=== PATIENT | male | born 1990 | race Caucasian/White ===

== ENCOUNTER 2020-04-04 20:02 | Observation (INO) | payer BC, OTHER ==
[2020-04-04] MEDS ORDERED: Sodium Chloride 0.9% 1,000 ML IV ONE ×3 (20:06→21:27)
[2020-04-04] MEDS ORDERED: Sodium Chloride 0.9% 2.5 ML Syringe FLUSH PRN (20:06)
[2020-04-04] MEDS ORDERED: Sodium Chloride 0.9% 10 ML Syringe FLUSH PRN (20:06)
--- NOTE | 2020-04-04 20:12 | EDM.PDOC ---
ED HPI GENERAL MEDICAL PROBLEM - General Chief Complaint: General Stated Complaint: POSSIBLE HEAT STROKE Time Seen by Provider: 04/04/20 20:06 - History of Present Illness INITIAL COMMENTS - FREE TEXT/NARRATIVE: History of present illness: 29-year-old male presenting with concern for possible heatstroke. Apparently has been working out in the heat and sun all day and feeling weak, shaky and cramping in arms and legs. He does report history of heat stroke in the past with similar symptoms but more severe at other times and that he was vomiting and unable to keep down fluids. No chest pain but does report some feeling like he cannot breathe well. No fevers or cough. No recent travel. He does report that where he works he is sometimes exposed to exhaust smoke. Review of systems: As per history of present illness and below otherwise all systems reviewed and negative. Past medical history: As per history of present illness and as reviewed below otherwise noncontributory. Surgical history: As per history of present illness and as reviewed below otherwise noncontributory. Social history: No reported history of drug or alcohol abuse. Family history: As per history of present illness and as reviewed below otherwise noncontributory. Physical exam: GEN: no acute distress, well appearing HEENT: Atraumatic, normocephalic, mucous membranes dry Neck: supple, nontender, trachea midline. Lungs: No respiratory distress. Heart: RRR Abdomen: Soft, nondistended, nontender. Back: nontender Extremities: Atraumatic. Neurovascularly intact. Neuro: Awake, alert, oriented. Neuro Exam nonfocal. Skin: warm, dry, no lesions Diagnostics: EKG performed today at 8:07 PM, sinus rhythm, rate 79, mild ST prominence, likely early repolarization. Patient with no chest pain. No STEMI. Therapeutics: [] MDM: Impression: [] Plan: [] Definitive disposition and diagnosis as appropriate pending reevaluation and review of above. - Related Data Allergies Allergy/AdvReac Type Severity Reaction Status Date / Time No Known Allergies Allergy Verified 04/04/20 20:15 Home Meds: Home Meds . [No Known Home Meds] 04/04/20 [History] Past Medical History - Past Health History Medical/Surgical History: Denies Medical/Surgical History Musculoskeletal History: Reports: Other (See Below) Other Musculoskeletal History: pain, swelling, and bluish discoloration on left 5th little finger Neurological History: Reports: Other (See Below) Other Neuro History: heat stroke last 2014 - Past Surgical History HEENT Surgical History: Reports: Other (See Below) Social & Family History - Family History Family Medical History: Noncontributory Cardiac: Reports: Hypertension Endocrine/Metabolic: Reports: Diabetes, type II Oncologic: Reports: Other (See Below) Other Oncologic Family History: cant remember which type ED ROS GENERAL - Review of Systems Review Of Systems: See Below (See dictation) ED EXAM, GENERAL - Physical Exam Exam: See Below (See dictation) Course - Vital Signs Text/Narrative:: Patient with dehydration/heat stroke/heat exhaustion. Creatinine acutely elevated to 3.1. Troponin also elevated but repeat 2-hour troponin after adequate hydration is improved/in a normal level. CPK 598, this is likely related to the patient's muscle contractions which he reports were ongoing for quite a while as he was being driven here from his worksite. White blood cell count is elevated, however patient did have several episodes of vomiting prior to arrival here. Has had no infectious signs or symptoms. Chest x-ray negative. COVID swab negative. Abdomen soft and nontender. No other potential infectious source found. Last Recorded V/S: Last Vital Signs Temp 98.1 F 04/04/20 20:10 Pulse 88 04/04/20 22:12 Resp 14 04/04/20 22:12 BP 146/89 H 04/04/20 22:12 Pulse Ox 99 04/04/20 22:12 - Orders/Labs/Meds Orders: Active Orders 24 hr Category Date Time Status Cardiac Monitoring [RC] . DIRECTED Care 04/04/20 20:06 Active EKG Documentation Completion [RC] STAT Care 04/04/20 20:07 Active RT Carbon Monoxide Diffusion [RC] Click to Edit Care 04/04/20 20:09 Active UA W/MAC RFLX IF INDICATED [URIN] Stat Lab 04/04/20 21:58 Ordered Sodium Chloride 0.9% [Saline Flush] Med 04/04/20 20:06 Active 10 ml FLUSH ASDIRECTED PRN Sodium Chloride 0.9% [Saline Flush] Med 04/04/20 20:06 Active 2.5 ml FLUSH ASDIRECTED PRN Saline Lock Insert [OM.PC] Stat Oth 04/04/20 20:06 Ordered Medication Orders Sodium Chloride (Saline Flush) 10 ml FLUSH ASDIRECTED PRN PRN Reason: Keep Vein Open Sodium Chloride (Saline Flush) 2.5 ml FLUSH ASDIRECTED PRN PRN Reason: Keep Vein Open Labs: Laboratory Tests 04/04/20 04/04/20 04/04/20 Range/Units 20:05 20:05 20:05 WBC 23.97 H (4.0-11.0) K/uL RBC 5.96 H (4.50-5.90) M/uL Hgb 18.5 H (13.0-17.0) g/dL Hct 50.2 H (38.0-50.0) % MCV 84.2 (80.0-98.0) fL MCH 31.0 (27.0-32.0) pg MCHC 36.9 (31.0-37.0) g/dL RDW Std Deviation 37.7 (28.0-62.0) fl RDW Coeff of John 13 (11.0-15.0) % Plt Count 360 (150-400) K/uL MPV 10.70 (7.40-12.00) fL Neut % (Auto) 84.4 H (48.0-80.0) % Lymph % (Auto) 5.5 L (16.0-40.0) % Cochran % (Auto) 9.9 (0.0-15.0) % Eos % (Auto) 0.0 (0.0-7.0) % Baso % (Auto) 0.2 (0.0-1.5) % Neut # (Auto) 20.2 H (1.4-5.7) K/uL Lymph # (Auto) 1.3 (0.6-2.4) K/uL Cochran # (Auto) 2.4 H (0.0-0.8) K/uL Eos # (Auto) 0.0 (0.0-0.7) K/uL Baso # (Auto) 0.0 (0.0-0.1) K/uL Nucleated RBC % 0.0 /100WBC Nucleated RBCs # 0 K/uL ABG Carboxyhemoglobin 2.5 (0-15) % Sodium 134 L (136-148) mmol/L Potassium 4.5 (3.5-5.1) mmol/L Chloride 92 L (98-107) mmol/L Carbon Dioxide 18.0 L (21.0-32.0) mmol/L BUN 14 (7.0-18.0) mg/dL Creatinine 3.1 H (0.8-1.3) mg/dL Est Cr Clr Drug Dosing 33.46 mL/min Estimated GFR (MDRD) 24.3 ml/min Glucose 142 H (74-106) mg/dL Calcium 11.2 H (8.5-10.1) mg/dL Magnesium 1.5 L (1.8-2.4) mg/dL Total Bilirubin 1.7 H (0.2-1.0) mg/dL AST 38 H (15-37) IU/L ALT 33 (14-63) IU/L Alkaline Phosphatase 118 H (46-116) U/L Creatine Kinase 598 H (26-308) U/L Troponin I (0.000-0.056) ng/mL Total Protein 10.5 H (6.4-8.2) g/dL Albumin 6.5 H (3.4-5.0) g/dL Globulin 4.0 (2.6-4.0) g/dL Albumin/Globulin Ratio 1.6 (0.9-1.6) SARS-CoV-2 RNA (RT-PCR) (NEGATIVE) 04/04/20 04/04/20 04/04/20 Range/Units 20:05 21:00 22:04 WBC (4.0-11.0) K/uL RBC (4.50-5.90) M/uL Hgb (13.0-17.0) g/dL Hct (38.0-50.0) % MCV (80.0-98.0) fL MCH (27.0-32.0) pg MCHC (31.0-37.0) g/dL RDW Std Deviation (28.0-62.0) fl RDW Coeff of John (11.0-15.0) % Plt Count (150-400) K/uL MPV (7.40-12.00) fL Neut % (Auto) (48.0-80.0) % Lymph % (Auto) (16.0-40.0) % Cochran % (Auto) (0.0-15.0) % Eos % (Auto) (0.0-7.0) % Baso % (Auto) (0.0-1.5) % Neut # (Auto) (1.4-5.7) K/uL Lymph # (Auto) (0.6-2.4) K/uL Cochran # (Auto) (0.0-0.8) K/uL Eos # (Auto) (0.0-0.7) K/uL Baso # (Auto) (0.0-0.1) K/uL Nucleated RBC % /100WBC Nucleated RBCs # K/uL ABG Carboxyhemoglobin (0-15) % Sodium (136-148) mmol/L Potassium (3.5-5.1) mmol/L Chloride (98-107) mmol/L Carbon Dioxide (21.0-32.0) mmol/L BUN (7.0-18.0) mg/dL Creatinine (0.8-1.3) mg/dL Est Cr Clr Drug Dosing mL/min Estimated GFR (MDRD) ml/min Glucose (74-106) mg/dL Calcium (8.5-10.1) mg/dL Magnesium (1.8-2.4) mg/dL Total Bilirubin (0.2-1.0) mg/dL AST (15-37) IU/L ALT (14-63) IU/L Alkaline Phosphatase (46-116) U/L Creatine Kinase (26-308) U/L Troponin I 0.079 H* <0.050 (0.000-0.056) ng/mL Total Protein (6.4-8.2) g/dL Albumin (3.4-5.0) g/dL Globulin (2.6-4.0) g/dL Albumin/Globulin Ratio (0.9-1.6) SARS-CoV-2 RNA (RT-PCR) NEGATIVE (NEGATIVE) Meds: Medications Generic Name Dose Route Start Last Admin Trade Name Freq PRN Reason Stop Dose Admin Sodium Chloride 10 ml 04/04/20 20:06 Saline Flush FLUSH ASDIRECTED PRN Keep Vein Open Sodium Chloride 2.5 ml 04/04/20 20:06 Saline Flush FLUSH ASDIRECTED PRN Keep Vein Open Discontinued Medications Generic Name Dose Route Start Last Admin Trade Name Freq PRN Reason Stop Dose Admin Sodium Chloride 1,000 mls @ 999 mls/hr 04/04/20 20:06 04/04/20 20:05 Normal Saline IV 04/04/20 21:06 999 mls/hr .Bolus ONE Administration Sodium Chloride 1,000 mls @ 999 mls/hr 04/04/20 20:52 04/04/20 21:06 Normal Saline IV 04/04/20 21:52 999 mls/hr BOLUS ONE Administration Sodium Chloride 1,000 mls @ 999 mls/hr 04/04/20 21:27 04/04/20 22:11 Normal Saline IV 04/04/20 22:27 999 mls/hr .Bolus ONE Administration Ondansetron HCl 4 mg 04/04/20 20:59 04/04/20 21:06 Zofran IVPUSH 04/04/20 21:00 4 mg ONETIME ONE Administration - Re-Assessments/Exams Free Text/Narrative Re-Assessment/Exam: 04/04/20 22:30 Patient reassessed. He is resting comfortably in no acute distress. He reports he is feeling much better with no further nausea or vomiting. I discussed all results with the patient and discussed my recommendation for admission. He agrees with this plan. Discussed the elevated troponin level. He has not had any chest pain. I suspect this is due to the acute renal insufficiency from the patient's dehydration. His white blood cell count is also elevated though he has had no infectious signs or symptoms in the last few days and he did have multiple episodes of vomiting prior to arrival here. 04/04/20 22:49 Dr. Glez called back and accepts the admission. Agrees with the plan. Place patient under observation. Departure - Departure Time of Disposition: 22:51 Disposition: Refer to Observation Clinical Impression: Dehydration, Elevated troponin Acute renal failure Qualifiers: Acute renal failure type: unspecified Qualified Code(s): N17.9 - Acute kidney failure, unspecified Leukocytosis Qualifiers: Leukocytosis type: unspecified Qualified Code(s): D72.829 - Elevated white blood cell count, unspecified Rhabdomyolysis Qualifiers: Rhabdomyolysis type: non-traumatic Qualified Code(s): M62.82 - Rhabdomyolysis - Discharge Information Referrals: PCP,None [Primary Care Provider] - Forms: ED Department Discharge Sepsis Event Note (ED) - Focused Exam Vital Signs: Vital Signs Temp Pulse Resp BP Pulse Ox 04/04/20 22:12 88 14 146/89 H 99 04/04/20 20:48 91 16 127/94 H 98 04/04/20 20:10 98.1 F 103 H 20 134/87 97 - My Orders Last 24 Hours: My Active Orders 04/04/20 20:06 Cardiac Monitoring [RC] . DIRECTED Sodium Chloride 0.9% [Saline Flush] 10 ml FLUSH ASDIRECTED PRN Sodium Chloride 0.9% [Saline Flush] 2.5 ml FLUSH ASDIRECTED PRN Saline Lock Insert [OM.PC] Stat 04/04/20 20:07 EKG Documentation Completion [RC] STAT 04/04/20 20:09 RT Carbon Monoxide Diffusion [RC] Click to Edit 04/04/20 21:58 UA W/MAC RFLX IF INDICATED [URIN] Stat - Assessment/Plan Last 24 Hours: My Active Orders 04/04/20 20:06 Cardiac Monitoring [RC] . DIRECTED Sodium Chloride 0.9% [Saline Flush] 10 ml FLUSH ASDIRECTED PRN Sodium Chloride 0.9% [Saline Flush] 2.5 ml FLUSH ASDIRECTED PRN Saline Lock Insert [OM.PC] Stat 04/04/20 20:07 EKG Documentation Completion [RC] STAT 04/04/20 20:09 RT Carbon Monoxide Diffusion [RC] Click to Edit 04/04/20 21:58 UA W/MAC RFLX IF INDICATED [URIN] Stat
--- NOTE | 2020-04-04 20:22 | CR ---
Chest: Portable view of the chest was obtained. Comparison: Prior chest x-ray of prior chest x-ray of 05/20/14. Heart size and mediastinum are normal. Lungs are clear. Bony structures are grossly intact. Impression: 1. Nothing acute is seen on portable chest x-ray. Diagnostic code #1 Study was dictated in MDT
[2020-04-04] MEDS ORDERED: Ondansetron 4 MG/2 ML SDV IVPUSH ONE (20:59)
[2020-04-04 21:20] LABS: POTASSIUM,K 4.5 mmol/L (3.5-5.1)
[2020-04-05] MEDS ORDERED: Ondansetron 4 MG/2 ML SDV IVPUSH PRN (00:09)
[2020-04-05] MEDS: Sodium Chloride 0.9% 1,000 ML IV SCH ×4 (00:38→19:17)
[2020-04-05 06:44] LABS: BLOOD UREA NITROGEN,BUN 13 mg/dL (7.0-18.0); CARBON DIOXIDE,CO2 24.1 mmol/L (21.0-32.0); CHLORIDE,CL 104 mmol/L (98-107); GLUCOSE RANDOM 100 mg/dL (74-106); SODIUM,NA 138 mmol/L (136-148)
--- NOTE | 2020-04-05 11:14 | PCM.HP.2 ---
H&P History of Present Illness - General Date of Service: 04/05/20 Admit Problem/Dx: Admission Diagnosis/Problem Admission Diagnosis/Problem Acute renal failure Source of Information: Patient History Limitations: Reports: No Limitations - History of Present Illness Initial Comments - Free Text/Narative: ED note: 29-year-old male presenting with concern for possible heatstroke. Apparently has been working out in the heat and sun all day and feeling weak, shaky and cramping in arms and legs. He does report history of heat stroke in the past with similar symptoms but more severe at other times and that he was vomiting and unable to keep down fluids. No chest pain but does report some feeling like he cannot breathe well. No fevers or cough. No recent travel. He does report that where he works he is sometimes exposed to exhaust smoke. ED course: recived NS bolus; troponin intial elevated; repeated at baseline of 0.050. pt did not express any chest pain. EKG NSR with mild ST changes noted to be early repolarizations per ED; admitted for observation. Elevated CPK of 500+ Bedside: endorses feeling much better since recieving fluids and rest. Does not express any major pain and or cocerns. Mentions cramping and spasming have pretty much resolved. Denies any N/V, headache, chest pain and or hematuria. - Related Data Allergies/Adverse Reactions: Allergies Allergy/AdvReac Type Severity Reaction Status Date / Time No Known Allergies Allergy Verified 04/05/20 00:28 Home Medications: Home Meds . [No Known Home Meds] 04/04/20 [History] Past Medical History - Past Health History Medical/Surgical History: Denies Medical/Surgical History Musculoskeletal History: Reports: Other (See Below) Other Musculoskeletal History: pain, swelling, and bluish discoloration on left 5th little finger Neurological History: Reports: Other (See Below) Other Neuro History: heat stroke last 2014 - Past Surgical History HEENT Surgical History: Reports: Other (See Below) Social & Family History - Family History Family Medical History: Noncontributory Cardiac: Reports: Hypertension Endocrine/Metabolic: Reports: Diabetes, type II Oncologic: Reports: Other (See Below) Other Oncologic Family History: cant remember which type - Tobacco Use Smoking Status *Q: Current Every Day Smoker Years of Tobacco use: 8 Packs/Tins Daily: 1 - Caffeine Use Caffeine Use: Reports: Soda - Recreational Drug Use Recreational Drug Use: Yes Drug Use in Last 12 Months: Yes Recreational Drug Type: Reports: Other (see below) Other Recreational Drug Type: marijuana Recreational Drug Use Frequency: Socially H&P Review of Systems - Review of Systems: Review Of Systems: See Below General: Reports: No Symptoms HEENT: Reports: No Symptoms Pulmonary: Reports: No Symptoms Cardiovascular: Reports: No Symptoms Gastrointestinal: Reports: No Symptoms Genitourinary: Reports: No Symptoms. Denies: Hematuria Musculoskeletal: Reports: No Symptoms Psychiatric: Reports: No Symptoms Neurological: Reports: No Symptoms Exam - Exam Exam: See Below - Vital Signs Vital Signs: Last Vital Signs Temp 98.5 F 04/05/20 08:00 Pulse 86 04/05/20 08:00 Resp 16 04/05/20 08:00 BP 98/48 L 04/05/20 08:00 Pulse Ox 96 04/05/20 08:00 Weight: 95.254 kg - Exam General: Alert, Oriented HEENT: EOMI Neck: Supple, Trachea Midline Lungs: Clear to Auscultation, Normal Respiratory Effort Cardiovascular: Regular Rate, Regular Rhythm GI/Abdominal Exam: Soft, Non-Tender Back Exam: Full Range of Motion Extremities: Normal Range of Motion Skin: Warm, Dry Neuro Extensive - Mental Status: Alert, Oriented x3, Normal Mood/Affect Neuro Extensive - Motor, Sensory, Reflexes: CN II-XII Intact Psychiatric: Alert, Normal Affect - Patient Data Lab Results Last 24 hrs: Laboratory Results - last 24 hr 04/04/20 04/04/20 04/04/20 Range/Units 20:05 20:05 20:05 WBC 23.97 H (4.0-11.0) K/uL RBC 5.96 H (4.50-5.90) M/uL Hgb 18.5 H (13.0-17.0) g/dL Hct 50.2 H (38.0-50.0) % MCV 84.2 (80.0-98.0) fL MCH 31.0 (27.0-32.0) pg MCHC 36.9 (31.0-37.0) g/dL RDW Std Deviation 37.7 (28.0-62.0) fl RDW Coeff of John 13 (11.0-15.0) % Plt Count 360 (150-400) K/uL MPV 10.70 (7.40-12.00) fL Neut % (Auto) 84.4 H (48.0-80.0) % Lymph % (Auto) 5.5 L (16.0-40.0) % Sebastian % (Auto) 9.9 (0.0-15.0) % Eos % (Auto) 0.0 (0.0-7.0) % Baso % (Auto) 0.2 (0.0-1.5) % Neut # (Auto) 20.2 H (1.4-5.7) K/uL Lymph # (Auto) 1.3 (0.6-2.4) K/uL Sebastian # (Auto) 2.4 H (0.0-0.8) K/uL Eos # (Auto) 0.0 (0.0-0.7) K/uL Baso # (Auto) 0.0 (0.0-0.1) K/uL Nucleated RBC % 0.0 /100WBC Nucleated RBCs # 0 K/uL ABG Carboxyhemoglobin 2.5 (0-15) % Sodium 134 L (136-148) mmol/L Potassium 4.5 (3.5-5.1) mmol/L Chloride 92 L (98-107) mmol/L Carbon Dioxide 18.0 L (21.0-32.0) mmol/L BUN 14 (7.0-18.0) mg/dL Creatinine 3.1 H (0.8-1.3) mg/dL Est Cr Clr Drug Dosing 33.46 mL/min Estimated GFR (MDRD) 24.3 ml/min Glucose 142 H (74-106) mg/dL Calcium 11.2 H (8.5-10.1) mg/dL Magnesium 1.5 L (1.8-2.4) mg/dL Total Bilirubin 1.7 H (0.2-1.0) mg/dL AST 38 H (15-37) IU/L ALT 33 (14-63) IU/L Alkaline Phosphatase 118 H (46-116) U/L Creatine Kinase 598 H (26-308) U/L Troponin I (0.000-0.056) ng/mL Total Protein 10.5 H (6.4-8.2) g/dL Albumin 6.5 H (3.4-5.0) g/dL Globulin 4.0 (2.6-4.0) g/dL Albumin/Globulin Ratio 1.6 (0.9-1.6) Urine Color Urine Appearance Urine pH (5.0-8.0) Ur Specific Mark (1.001-1.035) Urine Protein (NEGATIVE) mg/dL Urine Glucose (UA) (NEGATIVE) mg/dL Urine Ketones (NEGATIVE) mg/dL Urine Occult Blood (NEGATIVE) Urine Nitrite (NEGATIVE) Urine Bilirubin (NEGATIVE) Urine Urobilinogen (<2.0) EU/dL Ur Leukocyte Esterase (NEGATIVE) Urine RBC (0-2/HPF) Urine WBC (0-5/HPF) Ur Epithelial Cells (NONE-FEW) Urine Bacteria (NEGATIVE) SARS-CoV-2 RNA (RT-PCR) (NEGATIVE) 04/04/20 04/04/20 04/04/20 Range/Units 20:05 21:00 22:04 WBC (4.0-11.0) K/uL RBC (4.50-5.90) M/uL Hgb (13.0-17.0) g/dL Hct (38.0-50.0) % MCV (80.0-98.0) fL MCH (27.0-32.0) pg MCHC (31.0-37.0) g/dL RDW Std Deviation (28.0-62.0) fl RDW Coeff of John (11.0-15.0) % Plt Count (150-400) K/uL MPV (7.40-12.00) fL Neut % (Auto) (48.0-80.0) % Lymph % (Auto) (16.0-40.0) % Sebastian % (Auto) (0.0-15.0) % Eos % (Auto) (0.0-7.0) % Baso % (Auto) (0.0-1.5) % Neut # (Auto) (1.4-5.7) K/uL Lymph # (Auto) (0.6-2.4) K/uL Sebastian # (Auto) (0.0-0.8) K/uL Eos # (Auto) (0.0-0.7) K/uL Baso # (Auto) (0.0-0.1) K/uL Nucleated RBC % /100WBC Nucleated RBCs # K/uL ABG Carboxyhemoglobin (0-15) % Sodium (136-148) mmol/L Potassium (3.5-5.1) mmol/L Chloride (98-107) mmol/L Carbon Dioxide (21.0-32.0) mmol/L BUN (7.0-18.0) mg/dL Creatinine (0.8-1.3) mg/dL Est Cr Clr Drug Dosing mL/min Estimated GFR (MDRD) ml/min Glucose (74-106) mg/dL Calcium (8.5-10.1) mg/dL Magnesium (1.8-2.4) mg/dL Total Bilirubin (0.2-1.0) mg/dL AST (15-37) IU/L ALT (14-63) IU/L Alkaline Phosphatase (46-116) U/L Creatine Kinase (26-308) U/L Troponin I 0.079 H* <0.050 (0.000-0.056) ng/mL Total Protein (6.4-8.2) g/dL Albumin (3.4-5.0) g/dL Globulin (2.6-4.0) g/dL Albumin/Globulin Ratio (0.9-1.6) Urine Color Urine Appearance Urine pH (5.0-8.0) Ur Specific Mark (1.001-1.035) Urine Protein (NEGATIVE) mg/dL Urine Glucose (UA) (NEGATIVE) mg/dL Urine Ketones (NEGATIVE) mg/dL Urine Occult Blood (NEGATIVE) Urine Nitrite (NEGATIVE) Urine Bilirubin (NEGATIVE) Urine Urobilinogen (<2.0) EU/dL Ur Leukocyte Esterase (NEGATIVE) Urine RBC (0-2/HPF) Urine WBC (0-5/HPF) Ur Epithelial Cells (NONE-FEW) Urine Bacteria (NEGATIVE) SARS-CoV-2 RNA (RT-PCR) NEGATIVE (NEGATIVE) 04/04/20 04/05/20 04/05/20 Range/Units 23:20 06:06 06:06 WBC 11.50 H (4.0-11.0) K/uL RBC 4.50 (4.50-5.90) M/uL Hgb 13.2 (13.0-17.0) g/dL Hct 38.6 (38.0-50.0) % MCV 85.8 (80.0-98.0) fL MCH 29.3 (27.0-32.0) pg MCHC 34.2 (31.0-37.0) g/dL RDW Std Deviation 39.6 (28.0-62.0) fl RDW Coeff of John 13 (11.0-15.0) % Plt Count 207 (150-400) K/uL MPV 10.00 (7.40-12.00) fL Neut % (Auto) 73.0 (48.0-80.0) % Lymph % (Auto) 18.2 (16.0-40.0) % Sebastian % (Auto) 8.3 (0.0-15.0) % Eos % (Auto) 0.3 (0.0-7.0) % Baso % (Auto) 0.2 (0.0-1.5) % Neut # (Auto) 8.4 H (1.4-5.7) K/uL Lymph # (Auto) 2.1 (0.6-2.4) K/uL Sebastian # (Auto) 1.0 H (0.0-0.8) K/uL Eos # (Auto) 0.0 (0.0-0.7) K/uL Baso # (Auto) 0.0 (0.0-0.1) K/uL Nucleated RBC % 0.0 /100WBC Nucleated RBCs # 0 K/uL ABG Carboxyhemoglobin (0-15) % Sodium 138 (136-148) mmol/L Potassium 4.0 (3.5-5.1) mmol/L Chloride 104 (98-107) mmol/L Carbon Dioxide 24.1 (21.0-32.0) mmol/L BUN 13 (7.0-18.0) mg/dL Creatinine 1.1 (0.8-1.3) mg/dL Est Cr Clr Drug Dosing 104.15 mL/min Estimated GFR (MDRD) > 60.0 ml/min Glucose 100 (74-106) mg/dL Calcium 8.2 L (8.5-10.1) mg/dL Magnesium (1.8-2.4) mg/dL Total Bilirubin (0.2-1.0) mg/dL AST (15-37) IU/L ALT (14-63) IU/L Alkaline Phosphatase (46-116) U/L Creatine Kinase 842 H (26-308) U/L Troponin I (0.000-0.056) ng/mL Total Protein (6.4-8.2) g/dL Albumin (3.4-5.0) g/dL Globulin (2.6-4.0) g/dL Albumin/Globulin Ratio (0.9-1.6) Urine Color YELLOW Urine Appearance CLEAR Urine pH 6.0 (5.0-8.0) Ur Specific Mark 1.010 (1.001-1.035) Urine Protein NEGATIVE (NEGATIVE) mg/dL Urine Glucose (UA) NEGATIVE (NEGATIVE) mg/dL Urine Ketones NEGATIVE (NEGATIVE) mg/dL Urine Occult Blood SMALL H (NEGATIVE) Urine Nitrite NEGATIVE (NEGATIVE) Urine Bilirubin NEGATIVE (NEGATIVE) Urine Urobilinogen 0.2 (<2.0) EU/dL Ur Leukocyte Esterase NEGATIVE (NEGATIVE) Urine RBC 0-1 (0-2/HPF) Urine WBC 0-1 (0-5/HPF) Ur Epithelial Cells RARE (NONE-FEW) Urine Bacteria RARE (NEGATIVE) SARS-CoV-2 RNA (RT-PCR) (NEGATIVE) 04/05/20 Range/Units 06:06 WBC (4.0-11.0) K/uL RBC (4.50-5.90) M/uL Hgb (13.0-17.0) g/dL Hct (38.0-50.0) % MCV (80.0-98.0) fL MCH (27.0-32.0) pg MCHC (31.0-37.0) g/dL RDW Std Deviation (28.0-62.0) fl RDW Coeff of John (11.0-15.0) % Plt Count (150-400) K/uL MPV (7.40-12.00) fL Neut % (Auto) (48.0-80.0) % Lymph % (Auto) (16.0-40.0) % Sebastian % (Auto) (0.0-15.0) % Eos % (Auto) (0.0-7.0) % Baso % (Auto) (0.0-1.5) % Neut # (Auto) (1.4-5.7) K/uL Lymph # (Auto) (0.6-2.4) K/uL Sebastian # (Auto) (0.0-0.8) K/uL Eos # (Auto) (0.0-0.7) K/uL Baso # (Auto) (0.0-0.1) K/uL Nucleated RBC % /100WBC Nucleated RBCs # K/uL ABG Carboxyhemoglobin (0-15) % Sodium (136-148) mmol/L Potassium (3.5-5.1) mmol/L Chloride (98-107) mmol/L Carbon Dioxide (21.0-32.0) mmol/L BUN (7.0-18.0) mg/dL Creatinine (0.8-1.3) mg/dL Est Cr Clr Drug Dosing mL/min Estimated GFR (MDRD) ml/min Glucose (74-106) mg/dL Calcium (8.5-10.1) mg/dL Magnesium 1.8 (1.8-2.4) mg/dL Total Bilirubin (0.2-1.0) mg/dL AST (15-37) IU/L ALT (14-63) IU/L Alkaline Phosphatase (46-116) U/L Creatine Kinase (26-308) U/L Troponin I (0.000-0.056) ng/mL Total Protein (6.4-8.2) g/dL Albumin (3.4-5.0) g/dL Globulin (2.6-4.0) g/dL Albumin/Globulin Ratio (0.9-1.6) Urine Color Urine Appearance Urine pH (5.0-8.0) Ur Specific Mark (1.001-1.035) Urine Protein (NEGATIVE) mg/dL Urine Glucose (UA) (NEGATIVE) mg/dL Urine Ketones (NEGATIVE) mg/dL Urine Occult Blood (NEGATIVE) Urine Nitrite (NEGATIVE) Urine Bilirubin (NEGATIVE) Urine Urobilinogen (<2.0) EU/dL Ur Leukocyte Esterase (NEGATIVE) Urine RBC (0-2/HPF) Urine WBC (0-5/HPF) Ur Epithelial Cells (NONE-FEW) Urine Bacteria (NEGATIVE) SARS-CoV-2 RNA (RT-PCR) (NEGATIVE) Result Diagrams: 04/05/20 06:06 04/05/20 06:06 Sepsis Event Note - Evaluation Sepsis Screening Result: No Definite Risk - Focused Exam Vital Signs: Vital Signs Temp Pulse Resp BP Pulse Ox 04/05/20 08:00 98.5 F 86 16 98/48 L 96 04/05/20 05:36 106/52 L 04/05/20 05:23 97.6 F 76 16 97/45 L 96 04/05/20 00:22 99.1 F 89 15 138/74 97 Date Exam was Performed: 04/05/20 Time Exam was Performed: 11:40 Problem List Initiated/Reviewed/Updated: Yes Orders Last 24hrs: Active Orders 24 hr Category Date Time Status Patient Status [ADT] Routine ADT 04/04/20 22:52 Active Cardiac Monitoring [RC] . DIRECTED Care 04/04/20 20:06 Active EKG Documentation Completion [RC] STAT Care 04/04/20 20:07 Active RT Carbon Monoxide Diffusion [RC] Click to Edit Care 04/04/20 20:09 Active Telemetry Monitoring [Cardiac Monitoring] [RC] . Care 04/04/20 23:46 Active DIRECTED Regular Diet [DIET] Diet 04/05/20 Breakfast Active CREATINE KINASE,CK [CHEM] Routine Lab 04/05/20 16:00 Ordered Ondansetron [Zofran] Med 04/05/20 00:09 Active 4 mg IVPUSH Q4H PRN Sodium Chloride 0.9% [Normal Saline] 1,000 ml Med 04/05/20 00:15 Active IV ASDIRECTED Sodium Chloride 0.9% [Normal Saline] 1,000 ml Med 04/05/20 13:00 Ordered IV BOLUS Sodium Chloride 0.9% [Saline Flush] Med 04/04/20 20:06 Active 10 ml FLUSH ASDIRECTED PRN Sodium Chloride 0.9% [Saline Flush] Med 04/04/20 20:06 Active 2.5 ml FLUSH ASDIRECTED PRN Saline Lock Insert [OM.PC] Stat Oth 04/04/20 20:06 Ordered Medication Orders Sodium Chloride (Normal Saline) 1,000 mls @ 200 mls/hr IV ASDIRECTED DEB Last Admin: 04/05/20 05:39 Dose: 200 mls/hr Documented by: Infusion: 04/05/20 05:38 Dose: 200 mls/hr Documented by: Admin: 04/05/20 00:38 Dose: 200 mls/hr Documented by: QUYEN Sodium Chloride (Normal Saline) 1,000 mls @ 999 mls/hr IV BOLUS ONE Stop: 04/05/20 14:00 Ondansetron HCl (Zofran) 4 mg IVPUSH Q4H PRN PRN Reason: Nausea Sodium Chloride (Saline Flush) 10 ml FLUSH ASDIRECTED PRN PRN Reason: Keep Vein Open Sodium Chloride (Saline Flush) 2.5 ml FLUSH ASDIRECTED PRN PRN Reason: Keep Vein Open Assessment/Plan Comment:: Assessment: 1. Dehydration in the setting of N/V and Heat stroke 2. Leukocytosis: improving 3. Elevated troponin in setting of SUNITHA and elevated CPK: resolved 4. SUNITHA: resolved 5. PMH: previous episode of Rhabdomyolysis in 2014 Plan Admitted to obs. Full code. i/o's per routine. Telemetry. Regular diet. up ad le. IV NS: 200 cc/hr 1. Elevated CPK: repeat CPK also elevated; will continue fluid hydration; additional iv bolus of NS this PM; repeat CPK this afternoon. pt requesting discharge as he is currently asymptomatic. If numbers improving and clinical picture is sound; will potentially discharge. Continue to monitor. On telemetry: no major electrolyte disturbance this AM 2. Leukocytosis: most likely in setting of dehydration, SUNITHA and blood in UA most likely Hgb from [place]; afebrile otherwise: WBC now 11; improving. Continue to monitor.
[2020-04-05] MEDS ORDERED: Sodium Chloride 0.9% 1,000 ML IV ONE (13:00)
[2020-04-06] MEDS: Sodium Chloride 0.9% 1,000 ML IV SCH ×2 (01:13→05:39)
[2020-04-06 06:34] LABS: BLOOD UREA NITROGEN,BUN 10 mg/dL (7.0-18.0); CARBON DIOXIDE,CO2 27.2 mmol/L (21.0-32.0); CHLORIDE,CL 105 mmol/L (98-107); GLUCOSE RANDOM 87 mg/dL (74-106); SODIUM,NA 139 mmol/L (136-148)
--- NOTE | 2020-04-06 08:22 | PCM.DCSUM1 ---
<Lissette You - Last Filed: 04/06/20 10:08> Discharge Summary - Hospital Course Free Text/Narrative:: ED note: 29-year-old male presenting with concern for possible heatstroke. Apparently has been working out in the heat and sun all day and feeling weak, shaky and cramping in arms and legs. He does report history of heat stroke in the past with similar symptoms but more severe at other times and that he was vomiting and unable to keep down fluids. No chest pain but does report some feeling like he cannot breathe well. No fevers or cough. No recent travel. He does report that where he works he is sometimes exposed to exhaust smoke. ED course: recived NS bolus; troponin intial elevated; repeated at baseline of 0.050. pt did not express any chest pain. EKG NSR with mild ST changes noted to be early repolarizations per ED; admitted for observation. Elevated CPK of 500+ Hospital course : endorses feeling much better since receiving fluids and rest. Does not express any major pain and or concerns. Mentions cramping and spasming have pretty much resolved. Denies any N/V, headache, chest pain and or hematuria. Repeat CPK on day 1 elevated slight more to 800; advised to stay overnight for further IV fluids; pt agreed. Following morning CPK imrpoved; pt. asymptomatic; requesting discharge. Follow up in 1-week with instructions to avoid heat exhaustion provided; advised to drink plenty of fluids and to avoid over-exertion until cleared by PCP. pt understood and agreed. Discharged in stable condition. - Discharge Data Discharge Date: 04/06/20 Discharge Disposition: Home, Self-Care 01 Condition: Fair - Referral to Home Health Primary Care Physician: PCP None - Discharge Plan Home Medications: Home Meds . [No Known Home Meds] 04/04/20 [History] Patient Handouts: Acute Kidney Injury, Adult Referrals: Lissette You MD [Resident] - 04/12/20 2:30 pm - Discharge Summary/Plan Comment DC Time >30 min.: No - Patient Data Vitals - Most Recent: Last Vital Signs Temp 97.0 F 04/06/20 04:00 Pulse 61 04/06/20 04:00 Resp 16 04/06/20 04:00 BP 126/67 04/06/20 04:00 Pulse Ox 97 06/26/20 04:00 Weight - Most Recent: 95.254 kg I&O - Last 24 hours: Intake & Output 04/05/20 04/06/20 04/06/20 22:59 06:59 14:59 Intake Total 4541 1747 Output Total 1900 1100 Balance 5021 542 Lab Results - Last 24 hrs: Laboratory Results - last 24 hr 04/05/20 04/05/20 04/06/20 Range/Units 06:06 16:02 05:57 WBC 6.11 (4.0-11.0) K/uL RBC 4.08 L (4.50-5.90) M/uL Hgb 12.2 L (13.0-17.0) g/dL Hct 35.4 L (38.0-50.0) % MCV 86.8 (80.0-98.0) fL MCH 29.9 (27.0-32.0) pg MCHC 34.5 (31.0-37.0) g/dL RDW Std Deviation 40.0 (28.0-62.0) fl RDW Coeff of John 13 (11.0-15.0) % Plt Count 155 (150-400) K/uL MPV 10.20 (7.40-12.00) fL Neut % (Auto) 57.9 (48.0-80.0) % Lymph % (Auto) 35.0 (16.0-40.0) % [place] % (Auto) 5.9 (0.0-15.0) % Eos % (Auto) 1.0 (0.0-7.0) % Baso % (Auto) 0.2 (0.0-1.5) % Neut # (Auto) 3.5 (1.4-5.7) K/uL Lymph # (Auto) 2.1 (0.6-2.4) K/uL [place] # (Auto) 0.4 (0.0-0.8) K/uL Eos # (Auto) 0.1 (0.0-0.7) K/uL Baso # (Auto) 0.0 (0.0-0.1) K/uL Nucleated RBC % 0.0 /100WBC Nucleated RBCs # 0 K/uL Sodium (136-148) mmol/L Potassium (3.5-5.1) mmol/L Chloride (98-107) mmol/L Carbon Dioxide (21.0-32.0) mmol/L BUN (7.0-18.0) mg/dL Creatinine (0.8-1.3) mg/dL Est Cr Clr Drug Dosing mL/min Estimated GFR (MDRD) ml/min Glucose (74-106) mg/dL Calcium (8.5-10.1) mg/dL Magnesium 1.8 (1.8-2.4) mg/dL Total Bilirubin (0.2-1.0) mg/dL AST (15-37) IU/L ALT (14-63) IU/L Alkaline Phosphatase (46-116) U/L Creatine Kinase 958 H (26-308) U/L Total Protein (6.4-8.2) g/dL Albumin (3.4-5.0) g/dL Globulin (2.6-4.0) g/dL Albumin/Globulin Ratio (0.9-1.6) 04/06/20 Range/Units 05:57 WBC (4.0-11.0) K/uL RBC (4.50-5.90) M/uL Hgb (13.0-17.0) g/dL Hct (38.0-50.0) % MCV (80.0-98.0) fL MCH (27.0-32.0) pg MCHC (31.0-37.0) g/dL RDW Std Deviation (28.0-62.0) fl RDW Coeff of John (11.0-15.0) % Plt Count (150-400) K/uL MPV (7.40-12.00) fL Neut % (Auto) (48.0-80.0) % Lymph % (Auto) (16.0-40.0) % [place] % (Auto) (0.0-15.0) % Eos % (Auto) (0.0-7.0) % Baso % (Auto) (0.0-1.5) % Neut # (Auto) (1.4-5.7) K/uL Lymph # (Auto) (0.6-2.4) K/uL [place] # (Auto) (0.0-0.8) K/uL Eos # (Auto) (0.0-0.7) K/uL Baso # (Auto) (0.0-0.1) K/uL Nucleated RBC % /100WBC Nucleated RBCs # K/uL Sodium 139 (136-148) mmol/L Potassium 4.0 (3.5-5.1) mmol/L Chloride 105 (98-107) mmol/L Carbon Dioxide 27.2 (21.0-32.0) mmol/L BUN 10 (7.0-18.0) mg/dL Creatinine 0.8 (0.8-1.3) mg/dL Est Cr Clr Drug Dosing 143.21 mL/min Estimated GFR (MDRD) > 60.0 ml/min Glucose 87 (74-106) mg/dL Calcium 7.8 L (8.5-10.1) mg/dL Magnesium (1.8-2.4) mg/dL Total Bilirubin 0.6 (0.2-1.0) mg/dL AST 28 (15-37) IU/L ALT 21 (14-63) IU/L Alkaline Phosphatase 62 (46-116) U/L Creatine Kinase 724 H (26-308) U/L Total Protein 5.7 L (6.4-8.2) g/dL Albumin 3.3 L (3.4-5.0) g/dL Globulin 2.4 L (2.6-4.0) g/dL Albumin/Globulin Ratio 1.4 (0.9-1.6) Med Orders - Current: Current Medications Ondansetron HCl (Zofran) 4 mg IVPUSH Q4H PRN PRN Reason: Nausea Sodium Chloride (Saline Flush) 10 ml FLUSH ASDIRECTED PRN PRN Reason: Keep Vein Open Sodium Chloride (Saline Flush) 2.5 ml FLUSH ASDIRECTED PRN PRN Reason: Keep Vein Open Discontinued Medications Sodium Chloride (Normal Saline) 1,000 mls @ 999 mls/hr IV .Bolus ONE Stop: 04/04/20 21:06 Last Admin: 04/04/20 20:05 Dose: 999 mls/hr Documented by: Sodium Chloride (Normal Saline) 1,000 mls @ 999 mls/hr IV BOLUS ONE Stop: 04/04/20 21:52 Last Admin: 04/04/20 21:06 Dose: 999 mls/hr Documented by: Sodium Chloride (Normal Saline) 1,000 mls @ 999 mls/hr IV .Bolus ONE Stop: 04/04/20 22:27 Last Admin: 04/04/20 22:11 Dose: 999 mls/hr Documented by: Sodium Chloride (Normal Saline) 1,000 mls @ 200 mls/hr IV ASDIRECTED DEB Last Admin: 04/06/20 05:39 Dose: 200 mls/hr Documented by: Sodium Chloride (Normal Saline) 1,000 mls @ 999 mls/hr IV BOLUS ONE Stop: 04/05/20 14:00 Last Admin: 04/05/20 13:29 Dose: 999 mls/hr Documented by: Ondansetron HCl (Zofran) 4 mg IVPUSH ONETIME ONE Stop: 04/04/20 21:00 Last Admin: 04/04/20 21:06 Dose: 4 mg Documented by: <Stone Glez - Last Filed: 04/06/20 21:42> Discharge Summary - Referral to Home Health Primary Care Physician: PCP None - Patient Data Vitals - Most Recent: Last Vital Signs Temp 36.6 C 04/06/20 11:24 Pulse 76 04/06/20 11:24 Resp 14 04/06/20 11:24 BP 137/74 04/06/20 11:24 Pulse Ox 99 04/06/20 11:24 I&O - Last 24 hours: Intake & Output 04/06/20 04/06/20 04/06/20 06:59 14:59 22:59 Intake Total 1747 660 Output Total 1100 850 Balance 647 -190 Lab Results - Last 24 hrs: Laboratory Results - last 24 hr 04/06/20 04/06/20 Range/Units 05:57 05:57 WBC 6.11 (4.0-11.0) K/uL RBC 4.08 L (4.50-5.90) M/uL Hgb 12.2 L (13.0-17.0) g/dL Hct 35.4 L (38.0-50.0) % MCV 86.8 (80.0-98.0) fL MCH 29.9 (27.0-32.0) pg MCHC 34.5 (31.0-37.0) g/dL RDW Std Deviation 40.0 (28.0-62.0) fl RDW Coeff of John 13 (11.0-15.0) % Plt Count 155 (150-400) K/uL MPV 10.20 (7.40-12.00) fL Neut % (Auto) 57.9 (48.0-80.0) % Lymph % (Auto) 35.0 (16.0-40.0) % [place] % (Auto) 5.9 (0.0-15.0) % Eos % (Auto) 1.0 (0.0-7.0) % Baso % (Auto) 0.2 (0.0-1.5) % Neut # (Auto) 3.5 (1.4-5.7) K/uL Lymph # (Auto) 2.1 (0.6-2.4) K/uL [place] # (Auto) 0.4 (0.0-0.8) K/uL Eos # (Auto) 0.1 (0.0-0.7) K/uL Baso # (Auto) 0.0 (0.0-0.1) K/uL Nucleated RBC % 0.0 /100WBC Nucleated RBCs # 0 K/uL Sodium 139 (136-148) mmol/L Potassium 4.0 (3.5-5.1) mmol/L Chloride 105 (98-107) mmol/L Carbon Dioxide 27.2 (21.0-32.0) mmol/L BUN 10 (7.0-18.0) mg/dL Creatinine 0.8 (0.8-1.3) mg/dL Est Cr Clr Drug Dosing 143.21 mL/min Estimated GFR (MDRD) > 60.0 ml/min Glucose 87 (74-106) mg/dL Calcium 7.8 L (8.5-10.1) mg/dL Total Bilirubin 0.6 (0.2-1.0) mg/dL AST 28 (15-37) IU/L ALT 21 (14-63) IU/L Alkaline Phosphatase 62 (46-116) U/L Creatine Kinase 724 H (26-308) U/L Total Protein 5.7 L (6.4-8.2) g/dL Albumin 3.3 L (3.4-5.0) g/dL Globulin 2.4 L (2.6-4.0) g/dL Albumin/Globulin Ratio 1.4 (0.9-1.6) Med Orders - Current: Current Medications Discontinued Medications Sodium Chloride (Normal Saline) 1,000 mls @ 999 mls/hr IV .Bolus ONE Stop: 04/04/20 21:06 Last Admin: 04/04/20 20:05 Dose: 999 mls/hr Documented by: Sodium Chloride (Normal Saline) 1,000 mls @ 999 mls/hr IV BOLUS ONE Stop: 04/04/20 21:52 Last Admin: 04/04/20 21:06 Dose: 999 mls/hr Documented by: Sodium Chloride (Normal Saline) 1,000 mls @ 999 mls/hr IV .Bolus ONE Stop: 04/04/20 22:27 Last Admin: 04/04/20 22:11 Dose: 999 mls/hr Documented by: Sodium Chloride (Normal Saline) 1,000 mls @ 200 mls/hr IV ASDIRECTED DEB Last Admin: 04/06/20 05:39 Dose: 200 mls/hr Documented by: Sodium Chloride (Normal Saline) 1,000 mls @ 999 mls/hr IV BOLUS ONE Stop: 04/05/20 14:00 Last Admin: 04/05/20 13:29 Dose: 999 mls/hr Documented by: Ondansetron HCl (Zofran) 4 mg IVPUSH ONETIME ONE Stop: 04/04/20 21:00 Last Admin: 04/04/20 21:06 Dose: 4 mg Documented by: Ondansetron HCl (Zofran) 4 mg IVPUSH Q4H PRN PRN Reason: Nausea Sodium Chloride (Saline Flush) 10 ml FLUSH ASDIRECTED PRN PRN Reason: Keep Vein Open Sodium Chloride (Saline Flush) 2.5 ml FLUSH ASDIRECTED PRN PRN Reason: Keep Vein Open - Free Text/Narrative Note: I have seen and evaluated the patient with the resident. I have discussed findings and treatment plan with resident. I agree with the assessment and plan as outlined in the following note.
[2020-04-06 11:26] VITALS: BP 137/74; PULSE 76
== END 2020-04-06 11:30 | disposition home or self-care (01) ==
LOC: MW.ED 20:02 → MW.MS 22:52
PROVIDERS: ADMIT Internal Medicine; ATTEND Internal Medicine
DX: N17.9 Acute kidney failure, unspecified (principal); E86.0 Dehydration; T67.01XA Heatstroke and sunstroke, initial encounter; F17.210 Nicotine dependence, cigarettes, uncomplicated; R79.89 Other specified abnormal findings of blood chemistry; Z20.828 Contact with and (suspected) exposure to other viral communicable diseases; Z87.39 Personal history of other diseases of the musculoskeletal system and connective tissue
CPT/HCPCS: 36415; 71045; 80048; 80053; 81001; 82375; 82550; 83735; 84484; 85025; 87635; 93005; 96361; 96374; 99285; J2405; J7030; U0002